=== PATIENT | female | born 1970 | race Caucasian/White ===

== ENCOUNTER 2018-12-17 15:38 | Emergency (ER) | payer MEDICAID ==
[~2018-12-17] VITALS: Ht 154.9 cm; Wt 70.5 kg
[2018-12-17] MEDS ORDERED: ALBU8HFA IH (15:42)
[2018-12-17] MEDS ORDERED: LISI-661 PO (15:42)
[2018-12-17 16:16] VITALS: BP 115/69
[2018-12-17] MEDS ORDERED: PredniSONE 20 MG TABLET PO ONE (16:30)
[2018-12-17] MEDS ORDERED: ALBUTEROL SULFATE HFA 90 MCG/PUFF 8 GM INHALER IH ONE (16:30)
== END 2018-12-17 16:52 | disposition home or self-care (01) ==
LOC: EMS 15:44
DX: J45.20 Mild intermittent asthma, uncomplicated (principal); I10 Essential (primary) hypertension; Z79.899 Other long term (current) drug therapy
CPT/HCPCS: 94640; 99283; J7512; J3535

== ENCOUNTER 2020-01-27 17:12 | Emergency (ER) | payer MEDICAID ==
[~2020-01-27] VITALS: Ht 157.5 cm; Wt 68.2 kg
[~2020-01-27 17:12] MED LIST: ALBU8HFA IH; LISI-661 PO
[2020-01-27] MEDS ORDERED: PROPARACAINE HCL 0.5% 15 ML OPHTHALMIC SOLUTION OD ONE (17:30)
[2020-01-27] MEDS ORDERED: FLUORESCEIN SODIUM 1 MG STRIP OD ONE (17:30)
[2020-01-27] MEDS ORDERED: IBUPROFEN 600 MG TABLET PO ONE (17:45)
[2020-01-27 18:13] VITALS: BP 140/76
== END 2020-01-27 18:25 | disposition home or self-care (01) ==
LOC: EMS 17:13
DX: S05.01XA Injury of conjunctiva and corneal abrasion without foreign body, right eye, initial encounter (principal); J45.909 Unspecified asthma, uncomplicated; I10 Essential (primary) hypertension; Z79.899 Other long term (current) drug therapy; W22.8XXA Striking against or struck by other objects, initial encounter; Y93.89 Activity, other specified; Y92.89 Other specified places as the place of occurrence of the external cause; Y99.8 Other external cause status